=== PATIENT | female | born 1975 | race Caucasian/White ===

== ENCOUNTER 2019-04-20 12:42 | Emergency (ER) | payer OTHER, SELFPAY ==
[2019-04-20 12:55] VITALS: BP 143/84; PULSE 85; RESP 20; TEMP 38.4; O2SAT 98
--- NOTE | 2019-04-20 13:34 | ED.URI ---
HPI - URI/Sore Throat General Chief Complaint: Upper Respiratory Infection Stated Complaint: body aches/sob/cook/ Related Data Home Medications Medication Instructions Recorded Confirmed olmesartan-hydrochlorothiazide 1 tablet PO DAILY 04/20/19 04/20/19 Allergies Allergy/AdvReac Type Severity Reaction Status Date / Time sumatriptan Allergy Unknown Difficulty Verified 04/20/19 13:02 Breathing PMFSH Past Medical History Medical History Asthma Surgical History Surgical History Hx of cholecystectomy Hx of tonsillectomy Family History Family History Grandparent Family history of malignant neoplasm Diabetes mellitus Mother Family history of chronic obstructive pulmonary disease Family history of diabetes mellitus in first degree relative Social History Social History Smoking status: Never smoker Alcohol intake: never Exam Narrative: Exam Narrative: Patient was a 43 year old female who presented with complaints of headache, body aches, sob and influenza like signs and symptoms. Patient's chart was documented on paper per downtime protocols and given to nursing staff. An H and P as well as ROS was completed on down time paper charting. Past medical history was reviewed with patient verbally. Patient was seen to be stable and tested positive for influena A per rapid swab in Urgent Care. Patient was instructed on follow up precautions and on symptomatic treatment. Patient was stable for discharge to home. Course Vital Signs Vital signs: Vital Signs Temperature 38.4 C H 04/20/19 12:55 Pulse Rate 85 04/20/19 12:55 Respiratory Rate 04/20/19 12:55 Blood Pressure 143/84 H 04/20/19 12:55 Pulse Oximetry 98 04/20/19 12:55 Temperature 38.4 C H 04/20/19 12:55 Pulse Rate 85 04/20/19 12:55 Respiratory Rate 04/20/19 12:55 Blood Pressure 143/84 H 04/20/19 12:55 Pulse Oximetry 98 04/20/19 12:55 MDM - URI/Sore Throat MDM Narrative Medical decision making narrative: Patient diagnosed with Influenza and discussed complications and to return to ED if symptoms become worse. Discussed plan of care with patient and patient stable for discharge. All documentation completed on down time paper charting per protocol. Lab Data Labs: Influenza A Screen Positive Reference Range: Negative Influenza B Screen Negative Reference Range: Negative Discharge Plan Discharge Clinical Impression: Influenza Patient Disposition: Home, Self-Care Condition: Stable Prescriptions: No Action olmesartan-hydrochlorothiazide 20-12.5 mg Tablet 1 tablet PO DAILY RF: 0 olmesartan 20 mg tablet 20 mg PO DAILY Qty: 30 RF: 0 hydrochlorothiazide 12.5 mg tablet 12.5 mg PO DAILY Qty: 30 RF: 0 Interventions: Discharge Disposition Last Done: 04/20/19 13:49 Follow-up/Referrals: UNKNOWN,DOCTOR [Primary Care Provider] - Discharge Date/Time: 04/20/19 13:49
== END 2019-04-20 13:49 | disposition home or self-care (01) ==
PROVIDERS: Emergency Provider Nurse Practitioner
DX: J10.1 Influenza due to other identified influenza virus with other respiratory manifestations (principal); J45.909 Unspecified asthma, uncomplicated
CPT/HCPCS: 87804; 99212; G0463

== ENCOUNTER 2021-11-30 13:24 | Outpatient (CLI) | payer BC, SELFPAY ==
--- NOTE | ~2021-11-30 | XR_ITS ---
EXAMINATION: XR chest 2V 11/30/2021 13:57 INDICATION: Nonspecific reaction to TB test. PROCEDURE: 2 view chest COMPARISON: 05/07/2014 FINDINGS: The lungs are clear. The cardiomediastinal silhouette is within normal limits. There are no pleural effusions. There is no pneumothorax suspected. IMPRESSION: 1: NO ACUTE CARDIOPULMONARY DISEASE. Reviewed, dictated and finalized at location A.
== END 2021-11-30 13:25 | disposition home or self-care (01) ==
LOC: CHSIMG 13:27
PROVIDERS: PCP Nurse Practitioner Family; Visit Provider Nurse Practitioner Family
DX: R76.11 Nonspecific reaction to tuberculin skin test without active tuberculosis (principal)
CPT/HCPCS: 71046

== ENCOUNTER 2022-09-10 16:11 | Emergency (ER) | payer OTHER, BC, SELFPAY ==
--- NOTE | ~2022-09-10 | XR_ITS ---
EXAM: XR cervical spine 4-5V DATE: 09/10/2022 17:05 HISTORY: injury moving pt. 2 days ago . COMPARISON: None available. FINDINGS: Craniocervical association and atlantoaxial joint are aligned and demonstrate moderate deg enerative change at the atlantodental interval. No prevertebral soft tissue swelling. Reversed cervic al lordosis centered at C4-5. Uncomplicated appearing ACDF at C5-6. Mild degenerative disc disease at C4-5. Moderate degenerative disc disease at C6-7. 2 mm anterolisthesis at C4-5. C2-3 facet fusion. M ultilevel facet arthropathy. IMPRESSION: No acute fracture or traumatic malalignment in the cervical spine. Grade 1 anterolisthesi s at C4-5, presumably on a degenerative basis. Reviewed, dictated and finalized at location K. IMPRESSION: No acute fracture or traumatic malalignment in the cervical spine. Grade 1 anterolisthesis at C4-5, presumably on a degenerative basis.
--- NOTE | ~2022-09-10 | XR_ITS ---
EXAM: XR shoulder RT min 2V DATE: 09/10/2022 17:05 HISTORY: injury moving Pt. 2 days ago . COMPARISON: None available. FINDINGS: ACDF hardware. Normal mineralization. No fracture or dislocation. No lytic or blastic lesio n. Moderate AC joint and mild clinical humeral joint osteoarthritic change. No erosion or periosteal change. Soft tissues within normal limits. IMPRESSION: No acute osseous finding in the right shoulder. Reviewed, dictated and finalized at location K.
[2022-09-10 16:31] VITALS: BP 206/114; PULSE 86; RESP 20; TEMP 37; O2SAT 97
--- NOTE | 2022-09-10 17:05 | ED.GENADULT ---
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 Patient reports that around midnight she couldn't move her right arm well and was having increased pain. Patient reports today that pain has continued despite using muscle relaxer, diclofenac, Lidocaine patches and ice. Patient has had previous neck surgery and also back surgery. MD complaint: right shoulder pain down to mid humerus, right neck Onset (ago): day(s) (2) Location: neck, right and upper extremity (shoulder) Radiation: extremity (down to mid right humerus) Severity scale (1-10): 9 Quality: sharp Pain Consistency: constant Exacerbating factors: movement (right arm) Treatments prior to arrival: cold therapy and other (diclofenac, Lidocaine patches, muscle relaxers) Related Data Allergies Allergy/AdvReac Type Severity Reaction Status Date / Time sumatriptan Allergy Unknown Difficulty Verified 09/10/22 18:23 Breathing Review of Systems Review of Systems: CONSTITUTIONAL: Denies fever, chills, or sweats. EYES: Denies visual changes, redness, or discharge. ENT: Denies rhinorrhea, congestion, sore throat, or otalgia. CARDIOVASCULAR: Denies chest pain, palpitations, or edema. RESPIRATORY: Denies cough or dyspnea. GASTROINTESTINAL: Denies abdominal pain, nausea, vomiting, or diarrhea. GENITOURINARY: Denies dysuria or hematuria. SKIN: Denies rash or itching. MUSCULOSKELETAL: Denies back pain,right neck pain,right shoulder radiating down mid humerus region, or myalgia. NEUROLOGIC: Denies headache, numbness, or weakness. PSYCHIATRIC: Denies anxiety or depression. All systems reviewed & are unremarkable except as noted in HPI and below PMFSH Past Medical History Medical History (Updated 09/11/22 @ 22:47 by Mary Minor NP) Asthma Fibromyalgia HTN (hypertension) Mild anemia Neck pain Overweight Pernicious anemia Restless leg syndrome Surgical History Surgical History (Updated 09/11/22 @ 22:46 by Mary Minor NP) History of lumbar spinal fusion Hx of cholecystectomy Hx of tonsillectomy Status post cervical spinal fusion Family History Family History Grandparent Family history of malignant neoplasm Diabetes mellitus Mother Family history of chronic obstructive pulmonary disease Family history of diabetes mellitus in first degree relative Social History Social History (Updated 09/11/22 @ 22:48 by Mary Minor NP) Smoking status: Never smoker Alcohol intake: never Substance use type: does not use Living arrangements: with family Gender identity (if verbalized by the patient): Female Comments At time of signature, agree with nursing past medical, surgical, social and family history. There is no relevant family history pertinent to the presenting complaint Exam Narrative: GENERAL: Well-appearing, well-nourished, and in some acute distress related to pain. HEAD: Normocephalic, atraumatic. EYES: PERRLA and EOMI. ENT: Nares clear, no rhinorrhea or epistaxis. Mucous membranes moist.TM's normal throat pink no swelling NECK: Supple. no lymphadenopathy pain to right neck CHEST: Clear to auscultation. No respiratory distress.SAO2 97% on room air HEART: Regular rate and rhythm. No murmur heard. Normal peripheral pulses. ABDOMEN: Soft,
[2022-09-10] MEDS: KETOROLAC (*BKC) 60 MG/2 ML VIAL IM (18:04)
== END 2022-09-10 18:22 | disposition home or self-care (01) ==
PROVIDERS: Emergency Provider Registered Nurse
DX: M54.2 Cervicalgia (principal); M25.511 Pain in right shoulder; I10 Essential (primary) hypertension; J45.909 Unspecified asthma, uncomplicated
CPT/HCPCS: 72050; 73030; 96372; 99214; G0463; J1885

== ENCOUNTER 2022-10-09 07:46 | Outpatient (CLI) | payer OTHER, SELFPAY ==
--- NOTE | ~2022-10-09 | MR_ITS ---
EXAMINATION: MR shoulder RT wo con DATE: 10/09/2022 08:31 INDICATION: M25.511 - Pain in right shoulder . TECHNIQUE: Magnetic resonance imaging (MRI) of the right shoulder was performed without intravenous c ontrast. Sequences included axial PD-weighted FS FSE, coronal oblique PD-weighted FS FSE and T2-weigh shane FS FSE, and sagittal oblique T2-weighted FS FSE and T1-weighted FSE. COMPARISON: X-ray right shoulder 09/10/2022 FINDINGS: Coracoacromial arch: Mild lateral downsloping of the type II acromion. Moderate AC joint hypertrophy. Moderate acromial ti p enthesopathy. Rotator cuff: Likely full-thickness 4 x 6 mm tear in the distal supraspinatus tendon at its insertion. Thinning of the distal supraspinatus tendon. Small ganglion cyst adjacent to the posterior aspect of the supraspi natus muscle belly. Bursal sided fraying of the superior cuff. Intrasubstance type tear of the infras pinatus tendon at the musculotendinous junction. Mild fatty atrophy of the infraspinatus. The teres m inor and subscapularis are intact. Biceps tendon and glenoid labrum: The long and short heads of the biceps tendon are intact. Mild degenerative changes in the glenoid la rylee, without focal tear Fluid: Small volume fluid in the subacromial subdeltoid bursa and glenohumeral joint. Bones/cartilage: Mild degenerative change at the glenohumeral joint. The marrow signal is benign and homogenous. IMPRESSION: Likely full-thickness tear of the distal supraspinatus tendon at its insertion, with no retraction or atrophy. Intrasubstance type tear of the infraspinous, with mild fatty atrophy. Subacromial, subdeltoid bursitis and bursal sided fraying. Moderate AC joint and mild glenohumeral joint osteoarthritis. Reviewed, dictated and finalized at location K.
== END 2022-10-09 07:47 | disposition home or self-care (01) ==
PROVIDERS: PCP Nurse Practitioner Family; Visit Provider Orthopaedic Surgery
DX: S46.011A Strain of muscle(s) and tendon(s) of the rotator cuff of right shoulder, initial encounter (principal); M25.511 Pain in right shoulder; M75.51 Bursitis of right shoulder; M19.011 Primary osteoarthritis, right shoulder
CPT/HCPCS: 73221

== ENCOUNTER 2022-11-22 11:58 | Outpatient (CLI) | payer OTHER, SELFPAY ==
--- NOTE | 2022-11-22 12:40 | ECG_ITS ---
Measurements Intervals [place] Rate: 87 P: 41 AL: 169 QRS: 1 QRSD: 90 T: 83 QT: 373 QTc: 449 Interpretive Statements SINUS RHYTHM POSSIBLE LEFT ATRIAL ENLARGEMENT DELAYED PRECORDIAL R/S TRANSITION LEFT VENTRICULAR HYPERTROPHY AND ST-T CHANGE MINIMAL Q WAVES- HIGH LATERAL LEADS BORDERLINE ECG NO PREVIOUS ECG AVAILABLE FOR COMPARISON Electronically Signed On 11-22-2022 13:21:35 CDT by Jacob Harris D.O.
[2022-11-22 13:07] LABS: Hematocrit 38.1 % (37.0-47.0); Hemoglobin 12.3 g/dL (12.0-15.0)
[2022-11-22 13:20] LABS: Anion Gap 9 mmol/L (8-16); Blood Urea Nitrogen 13 mg/dL (7-17); Calcium 8.8 mg/dL (8.4-10.2); Carbon Dioxide 30 mmol/L (22-30); Chloride 101 mmol/L (98-107); Estimated Glomerular Filt Rate > 60; Glucose 127 mg/dL (65-110); Potassium 3.1 mmol/L (3.4-5.0); Sodium 140 mmol/L (137-145)
== END 2022-11-22 11:59 | disposition home or self-care (01) ==
LOC: ANHLAB 12:01
PROVIDERS: PCP Nurse Practitioner Family; Visit Provider Anesthesiology
DX: Z01.818 Encounter for other preprocedural examination (principal); D64.9 Anemia, unspecified; I10 Essential (primary) hypertension; Z79.899 Other long term (current) drug therapy; R94.31 Abnormal electrocardiogram [ECG] [EKG]
CPT/HCPCS: 36415; 80048; 85014; 85018; 93005

== ENCOUNTER 2022-11-23 00:15 | Day surgery (SDC) | payer OTHER, SELFPAY ==
[2022-11-17 15:17] VITALS: BMI 49.8
--- NOTE | 2022-11-17 16:16 | PC.NURSE ---
Report to the Outpatient Waiting Room, entrance under the green pavilion located off [facility], at time _0930 on date _11/23/22. Planned Procedure Time:1130__. Time changes happen often and if your time is changed the preop area will call you the afternoon before. - You and your visitor will be asked to self-screen and do not enter if you have any COVID symptoms. - A mask is optional within the hospital at this time. Patients may have clear liquids (water, carbonated beverages, clear teas, apple juice) until 3 hours prior to surgery with a maximum of 20 ounces. - No food from midnight until time of surgery - Infants may have breast milk until 4 hours before surgery, formula 6 hours prior to surgery. - Children will be allowed to drink immediately following surgery. If applicable, please bring a bottle or sippy cup to assist with drinking. Juice, water, soda, and popsicles are readily available. For infants on formula, please bring formula the day of surgery. Pacifiers are allowed. Take the following medications with a SIP of water the morning of surgery: _duloxetine___ DO NOT STOP ANY OF YOUR OTHER PRESCRIPTION MEDICATIONS PRIOR TO SURGERY ?EXCEPT THE FOLLOWING Medications to discontinue per physician ___diclofenac(11/16/22), multivitamin(11/20/22) Date to take last dose Please no make-up, nail turkmen, hairspray, perfume, deodorant, or body powder the day of surgery. No jewelry (including any body piercings) or valuables the day of surgery, leave them at home. Please take a shower or bath the night before, or the morning of, surgery with an antibacterial soap. Wear comfortable, loose fitting clothing. Children are encouraged to wear pajamas. - Jewelry must be removed prior to entering the operating room. Rings and piercings that are not removed may be cut off. - The hospital will not accept responsibility for valuables. - Please leave all valuables, including medications, at home the day of surgery. If you are going home after surgery, a licensed auto transport driver must drive you home. - NO public transportation without another adult if you receive anesthesia. - We recommend that an adult stay with you for 24 hours following discharge. - We also recommend that you do not drive, make important decision, drink alcoholic beverages, or take any drugs that were not prescribed by your health care provider for at least 24 hours after your discharge time. For Pediatric surgeries, we recommend two adults accompany the child home. Follow any additional instructions given to you from your surgeon. If you or anyone in your household have experienced Covid symptoms in the past week, please notify your surgeon or the nurse liaison at the phone number below for possible testing. Telephone instructions given to Rosa Choudhary and asked if any additional questions and then verbalized understanding. Patient advised to call surgeon office or pre surgery nurse liaison [phone] if any additional questions.
--- NOTE | 2022-11-22 10:14 | WPDANESEPPF ---
Anes - Initial Pre Proc Eval Procedure: Operation Date: 11/23/22 11:30 Proposed Procedures p Right Shoulder Arthroscopic Rotator Cuff Repair with Subacromial Decompression - Lang Silver MD Date/Time: 11/22/22 10:14 Surgeon: Lang Silver MD Pre Op Diagnosis: right shoulder rotator cuff tear Patient Data Age: 47 Gender: F Height: 1.65 m Weight: 136 kg Allergies Allergy/AdvReac Type Severity Reaction Status Date / Time sumatriptan Allergy Unknown Difficulty Verified 11/18/22 10:42 Breathing Home Medications Medication Instructions Recorded Confirmed Type trazodone 50 mg tablet See Rx Instructions .Route 05/03/22 11/17/22 Rx .COMPLEX #30 tabs olmesartan 20 See Rx Instructions .Route 07/05/22 11/17/22 Rx mg-hydrochlorothiazide 12.5 mg .COMPLEX #90 tabs tablet duloxetine 60 mg capsule,delayed See Rx Instructions .Route 09/01/22 11/17/22 Rx release .COMPLEX #30 caps cyclobenzaprine 10 mg tablet See Rx Instructions .Route 11/04/22 11/17/22 Rx .COMPLEX #30 tabs diclofenac sodium 50 mg See Rx Instructions .Route 11/16/22 11/17/22 Rx tablet,delayed release .COMPLEX #60 tabs multivit with minerals-iron 18 1 tablet PO DAILY 11/17/22 11/17/22 History mg-folic ac 400 mcg-vit K 25 mcg tablet (Adults Multivitamin) oxycodone-acetaminophen 5 mg-325 1 - 2 tablet PO Q4-6H PRN pain #30 11/23/22 Rx mg tablet tabs Patient hx anesthesia problems: none Family hx anesthesia problems: none Results Review: All pre-operative results and documents have been reviewed as part of the pre-operative evaluation. [facility] Past Medical History Medical History Asthma Fibromyalgia HTN (hypertension) Mild anemia Neck pain Overweight Pernicious anemia Restless leg syndrome Surgical History Surgical History History of lumbar spinal fusion Hx of cholecystectomy Hx of tonsillectomy Status post cervical spinal fusion Family History Family History Grandparent Family history of malignant neoplasm Diabetes mellitus Mother Family history of chronic obstructive pulmonary disease Family history of diabetes mellitus in first degree relative Social History Social History Smoking status: Never smoker Alcohol intake: never Substance use: never Substance use type: does not use Lack of Transportation: No Lack of Food: Never True Current Housing: I Have Housing Concerned About Future Housing: No Difficulty Paying Gas/Electric Bills: No Difficulty Paying for Meds: No Currently Unemployed: No Education: Associate Degree Difficulty w/ Childcare or Family Care: No Living arrangements: with family Gender identity (if verbalized by the patient): Female Spiritual care concerns: No Anes - Eval Final PreProcedure Day of Procedure 11/22/22 10:14 Patient weight: morbidly obese Heart: regular rate and rhythm Lungs: clear to auscultation Airway: Mallampati scale class II Neurological: alert and oriented Last oral intake: >/= 8 hours ASA classification: III Emergent: no Anesthetic plan: proceed Anesthesia type and monitoring: general ETT and standard monitoring Results Review: All pre-operative results and documents have been reviewed as part of the pre-operative evaluation. Informed Consent: The patient's anesthetic plan and its attendant risks and benefits were discussed with the patient/family/POA. Questions were solicited and answers provided to the satisfaction of the patient/family/POA.
[2022-11-23] VITALS (13 sets, daily range): BP systolic 98–156; BP diastolic 50–110; PULSE 74–98; RESP 14–28; TEMP 36.1–36.4; O2SAT 90–97
--- NOTE | 2022-11-23 10:20 | WPDANESPNB ---
Anes - Peripheral Nerve Block Date/Time: 11/23/22 10:20 I have discussed with the patient/family/POA the placement of a peripheral nerve block for post-operative pain management, including associated risks, benefits, complications, and side effects. Alternative methods of post-operative analgesia were detailed. Questions were solicited and answers provided to the satisfaction of the patient/family/POA. Time-Out: A pre-procedural Time-Out was completed immediately before starting the procedure and confirmed: Patient Identification, Site, Procedure, Patient Position and the Availability of Requisite Equipment. Clinical Indications: Acute post-operative pain management requested by the operative surgeon. Nerve Block Insertion Note Anes-nerve block: interscalene right Patient position: supine Skin prep: chlorhexidine Needle: 22 gauge, stimulating, insulated echogenic needle. Needle length: 50 mm Technique: ultrasound Injectate: bupivacaine 0.5% with epi 5 mcg/ml (30cc- no epi) Observations: tolerated well Complications: none Procedure start time:: 1108 Procedure end time:: 1112
[2022-11-23] MEDS: KETOROLAC 15 MG/ML VIAL (*BKC) IV PUSH (10:45)
[2022-11-23] MEDS: ACETAMINOPHEN 500 MG TABLET 1000 MG PO (10:45)
[2022-11-23] MEDS: LACTATED RINGERS 1,000 ML 30 ML IV CONT ×2 (10:45→13:59)
[2022-11-23] MEDS: ceFAZolin 3 GM/D5W 100 ML 100 ML IVPB (11:26)
--- NOTE | 2022-11-23 11:27 | WPDHPUPDATE1 ---
History and Physical Update Update Date/Time: 11/23/22 11:27 History and Physical has been reviewed, including an updated exam of the patient. There are NO changes in the patient's condition. Risks, benefits, and alternatives have been discussed and questions answered. Patient agrees to proceed with procedure.
[2022-11-23] MEDS: EPINEPHrine HCL INJ 1 MG/ML AMPUL IRRIGATION (12:15)
--- NOTE | 2022-11-23 14:00 | W.PM.PROC2 ---
Procedure Note - Detailed Date of Procedure 11/23/22 Pre-op Diagnosis Right shoulder complete rotator cuff tear Post-op Diagnosis Other (1. Rotator cuff tear 2. Subacromial impingement ) Procedure Performed Right shoulder 1. Arthroscopic rotator cuff repair 2. Arthroscopic subacromial decompression Surgeon Lang Silver MD Owner Operator Tanker Truck Driver Odilia Schmidt PA-C Anesthesia General and Regional ( interscalene block) Findings Full thickness medium sized tear with mild retraction. Slight reverse L shape. Repaired with multiple points of fixation, x-box suture pattern, and two bone tunnels. Clear subacromial impingement noted. Extremely obese. Description of Procedure Preoperative antibiotics were given. An interscalene block was administered in the preoperative area. The patient was bought brought to the operating room. A general anesthetic was administered. The patient was carefully positioned in the beach chair position. The head and neck were carefully positioned. The non operative extremity was also carefully positioned. The shoulder was prepped and draped in the usual sterile fashion. Examination was performed. Standard posterior and anterior arthroscopic portals were established. Inflow achieved with the arthroscopic pump using saline and epinephrine. The glenohumeral joint was carefully inspected. No arthritis or lesions other than the supraspinatus tear. Attention was turned to the subacromial space. A complete bursectomy was performed. The rotator cuff and footprint were lightly debrided. A modest acromioplasty was performed. The tear configuration was carefully assessed. At this point, 2 tunnels were created at the rotator cuff. The ArthroTunneler technique was utilized. Three sutures were passed through each tunnel. All sutures were then passed through the cuff tissue. The sutures were tied arthroscopically. The arthroscopic instruments were removed. The wounds were closed with 3-0 Monocryl subcuticular suture and steri strips. There were no complications. A sling was applied and the patient brought to the recovery room. Physician video library assistant, Odilia Schmidt PA-C, required for surgery; including patient positioning, draping, arthroscopic camera operation, maintaining instrument position, suture retrieval, wound closure, and dressing and sling placement. Estimated Blood Loss -20.0 Pathology None sent Complications No immediate complications Condition Stable Disposition PACU [facility] Billing Surgery - Charge Forward: Surgery Billing
== END 2022-11-23 16:10 | disposition home or self-care (01) ==
PROVIDERS: PCP Nurse Practitioner Family; Visit Provider Orthopaedic Surgery
PROC: (CPT 29805; principal; 2022-11-23 11:30)
DX: S46.011A Strain of muscle(s) and tendon(s) of the rotator cuff of right shoulder, initial encounter (principal); X50.0XXA Overexertion from strenuous movement or load, initial encounter; Y93.F2 Activity, caregiving, lifting; G89.18 Other acute postprocedural pain; I10 Essential (primary) hypertension; Z98.1 Arthrodesis status; E66.01 Morbid (severe) obesity due to excess calories; Z68.43 Body mass index [BMI] 50.0-59.9, adult
CPT/HCPCS: 29827; 29826; 64415; A4565; A9270; J0171; J0330; J0690; J1100; J1170; J1885; J2250; J2371; J2405; J3010; J7120

== ENCOUNTER 2022-12-08 10:52 | Outpatient (CLI) | payer BC, SELFPAY ==
[2022-12-08 11:34] LABS: Basophils Absolute Auto 0.1 K/mm3 (0.0-0.1); Basophils Percent Auto 0.9 % (0.2-1.2); Eosinophils Absolute Auto 0.3 K/mm3 (0-0.3); Eosinophils Percent Auto 3.5 % (0-4.4); Hematocrit 35.9 % (37.0-47.0); Hemoglobin 11.5 g/dL (12.0-15.0); Immature Granulocyte Absolute 0.02 K/mm3 (0.00-0.031); Immature Granulocyte Percent A 0.3 % (0-0.5); Lymphocytes Absolute Auto 2.88 K/mm3 (0.9-3.2); Lymphocytes Percent Auto 36.1 % (18.3-44.2); Mean Corpuscular Hemoglobin 28.8 pg (26-34); Mean Platelet Volume 9.7 fl (7.4-10.4); Monocytes Absolute Auto 0.6 K/mm3 (0.1-0.6); Monocytes Percent Auto 7.9 % (2.6-8.5); Neutrophils Absolute Auto 4.1 K/mm3 (1.3-6.7); Neutrophils Percent Auto 51.3 % (45.5-73.1); Platelet Count Result 228 k/mm3 (150-375); Red Blood Count 3.99 M/mm3 (4.2-5.4)
[2022-12-08 11:51] LABS: Alanine Aminotransferase 34 U/L (6-35); Albumin Level 3.8 g/dL (3.5-5.1); Alkaline Phosphatase 73 U/L (38-126); Anion Gap 6 mmol/L (8-16); Aspartate Amino Transferase 34 U/L (14-36); Bilirubin,Total 0.4 mg/dL (0.2-1.3); Blood Urea Nitrogen 19 mg/dL (7-17); Calcium 8.7 mg/dL (8.4-10.2); Carbon Dioxide 33 mmol/L (22-30); Chloride 99 mmol/L (98-107); Cholesterol 176 mg/dL (0-200); Estimated Glomerular Filt Rate > 60; Glucose 112 mg/dL (65-110); HDL Direct 41 mg/dL; Potassium 3.4 mmol/L (3.4-5.0); Sodium 138 mmol/L (137-145); Triglycerides 273 mg/dL (<150)
[2022-12-08 12:02] LABS: LDL Cholesterol Direct 87 mg/dL
[2022-12-08 12:05] LABS: Hemoglobin A1C 5.5 % (<5.7)
== END 2022-12-08 10:53 | disposition home or self-care (01) ==
LOC: ANHLAB 10:57
PROVIDERS: PCP Nurse Practitioner Family; Visit Provider Nurse Practitioner Family
DX: I10 Essential (primary) hypertension (principal); R73.09 Other abnormal glucose; Z79.899 Other long term (current) drug therapy
CPT/HCPCS: 36415; 80053; 80061; 82306; 83036; 85025